=== PATIENT | female | born 1960 | race Caucasian/White ===

== ENCOUNTER 2019-10-14 17:52 | Emergency (ER) | payer BC, SELFPAY ==
[2019-10-14 17:58] VITALS: BP 159/93; PULSE 96; RESP 15; TEMP 36.3; O2SAT 97; BMI 33.6
--- NOTE | 2019-10-14 19:32 | ED.WOUNDLAC ---
HPI - Wound/Laceration <MARGARETH Ding - Last Filed: 10/14/19 22:28> General Chief Complaint: Wound/Laceration Stated Complaint: surgical wound bleeding Time Seen by Provider: 10/14/19 19:04 Source: patient Mode of arrival: Ambulatory Limitations: no limitations History of Present Illness HPI narrative: This is a 59-year-old female, nonsmoker, who presents to ED with status post slow Mohs surgery on L lower cheek for melanoma and basal cell cancer removal this afternoon at [address] Cavanaugh at [facility]. The site was cauterized before she left the office. When she arrived home around 5:00 p.m. patient and her spouse noticed pouring down blood from the surgical site. Patient had contacted on-call Contact Person and follow the instruction for direct pressure on surgical site for 15 minutes without good effect. Patient was advised to going to ED for bleeding controlled. Patient has an appointment tomorrow to follow up with another slow Mohs surgery. Patient denies currently on blood thinner. Patient has history of several melanomas and basal cell carcinoma in various areas and removal surgeries. Patient denies chest pain, breathing difficulty, dizziness at this time. Related Data Allergies Allergy/AdvReac Type Severity Reaction Status Date / Time alcohol Allergy Verified 10/14/19 17:58 [From Mastisol Adhesive] gum mastic Allergy Verified 10/14/19 17:58 [From Mastisol Adhesive] methyl salicylate Allergy Verified 10/14/19 17:58 [From Mastisol Adhesive] storax Allergy Verified 10/14/19 17:58 [From Mastisol Adhesive] Review of Systems <MARGARETH Ding - Last Filed: 10/14/19 22:28> Review of Systems Narrative: General: Denies fever, chills, fatigue, malaise, sweats. HEENT: Denies sinus pain, ear pain, sore throat, difficulty swallowing, dizziness. Respiratory: Denies dyspnea, cough, wheezing, hemoptysis, sputum. Cardiovascular: Denies chest pain, palpitations, orthopnea, edema. Gastrointestinal: Denies nausea, vomiting, abdominal pain, diarrhea, constipation, melena. : Denies dysuria, frequency, incontinence, hematuria, urinary retention. Musculoskeletal: Denies weakness, joint pain or bony pain. Skin: See HPI Neurologic: Denies weakness, headache, numbness, change in speech, confusion, seizures, incoordination. Psychiatric: No concerning psychosocial issues. 12-point review of systems is negative except for those stated above. Patient History <MARGARETH Ding - Last Filed: 10/14/19 22:28> Surgical History Status post Mohs surgery (Acute) Social History Smoking Status: Never smoker Smoking Status: Never smoker Substance Use Type: does not use Exam <MARGARETH Ding - Last Filed: 10/14/19 22:28> Narrative Exam Narrative: General appearance: well developed, well nourished, in no acute distress. Head: normocephalic, atraumatic, no scalp lesions, non-tender. ENT: Bilateral auditory canals and tympanic membranes clear. Hearing grossly intact. Nose without bleeding, purulent discharge, septal hematoma or deviation. Turbinate without erythema or swelling. Facial sinuses nontender to palpate. Mucous membrane moist, no mucosal lesion. Throat without erythema, tonsillar hypertrophy or exudate. Uvula in midline, airway patent. Neck/Thyroid: neck supple, full range of motion, no visible masses or meningeal signs. No JVD, non-tender without lymphadenopathy. Skin: L lower cheek has a small dressing saturated with blood and when this was removed from the most surgical site which is about 2.5 cm in diameter, w/o pulsating, profuse bleeding from the site. No suspicious rashes, lesions over other visible areas. Warm and dry and appropriate color for ethnicity. Heart: no clubbing, no cyanosis, no edema. S1 and S2 normal. RRR w/o murmurs, clicks, or bruits. Lungs: Breathing even and unlabored. No stridor. No accessory muscles used. Able to speak in full sentences. Chest: normal shape and expansion. Abdomen: non-obese, non-distended. Neurologic: alert and oriented. Cognitive exam, LOGISTICS VICE PRESIDENT and PNS grossly intact on informal exam. Psych: good eye contact, normal affect. Initial Vital Signs Initial Vital Signs: Vital Signs Temperature 97.3 F L 10/14/19 17:58 Pulse Rate 96 H 10/14/19 17:58 Respiratory Rate 15 10/14/19 17:58 Blood Pressure 159/93 H 10/14/19 17:58 Pulse Oximetry 97 10/14/19 17:58 <Jerad Smith DO - Last Filed: 10/14/19 22:57> Initial Vital Signs Initial Vital Signs: Vital Signs Temperature 97.3 F L 10/14/19 17:58 Pulse Rate 96 H 10/14/19 17:58 Respiratory Rate 15 10/14/19 17:58 Blood Pressure 159/93 H 10/14/19 17:58 Pulse Oximetry 97 10/14/19 17:58 Course <Cecil aGo MARGARETH - Last Filed: 10/14/19 22:28> Orders Ordered: Discontinued Medications Lidocaine/Epinephrine (Xylocaine 1% W/Epi) 1 ml SUBCUT NOW ONE Stop: 10/14/19 19:10 Tranexamic Acid (Cyklokapron) 1,000 mg MM NOW ONE Stop: 10/14/19 20:00 Last Admin: 10/14/19 21:32 Dose: 1,000 mg Documented by: CPRUITT Reevaluation(s) Reevaluation #1: very slow oozing from the site after surgicell applied with pressure dression applied for 20 minutes Time: 19:55 Reevaluation #2: Reinforced dressing with surgi foam and direct pressure for 5 minutes. Applied pressure dressing for 15 minutes. Monitored for additional 15min with slow oozing. Time: 20:30 Reevaluation #3: TXA soaked surgiform with direct pressure. Reinfored TXA soaked surgicell dressing for additional direct pressure for 10 min. Monitoring additional 15 min with pressure dressing. No active bleeding noted. Vital Signs Vital signs: Vital Signs - 8 hr 10/14/19 17:58 10/14/19 21:54 Temperature 97.3 F L Pulse Rate 96 H 81 Respiratory Rate 15 17 Blood Pressure 159/93 H Blood Pressure [Left Arm] 142/96 H Pulse Oximetry 97 97 <Jerad Smith DO - Last Filed: 10/14/19 22:57> Orders Ordered: Discontinued Medications Lidocaine/Epinephrine (Xylocaine 1% W/Epi) 1 ml SUBCUT NOW ONE Stop: 10/14/19 19:10 Tranexamic Acid (Cyklokapron) 1,000 mg MM NOW ONE Stop: 10/14/19 20:00 Last Admin: 10/14/19 21:32 Dose: 1,000 mg Documented by: CPRUITT Vital Signs Vital signs: Vital Signs - 8 hr 10/14/19 17:58 10/14/19 21:54 Temperature 97.3 F L Pulse Rate 96 H 81 Respiratory Rate 15 17 Blood Pressure 159/93 H Blood Pressure [Left Arm] 142/96 H Pulse Oximetry 97 97 MDM - Wound/Laceration <Cecil RadhaMARGARETH wood - Last Filed: 10/14/19 22:28> Differential Diagnosis Differential diagnosis: Likely other (post op bleeding) Medical Records Attestation: I reviewed the patient's medical records. MDM Narrative Medical decision making narrative: This is a 59-year-old female who presents to ED with post procedure bleeding on her left lower cheek to remove basal cell carcinoma and melanoma this afternoon at 2:[address] Donna Cavanaugh (oracle database developer) in [place]. Patient reports during procedure there was bleeding more than usual and it had to be cauterized. After patient return to home she and her spouse notice blood pouring down from the site. When the bandage was removed, there was profused bleeding from the site but no pulsation appreciated. Attempted several times to stop bleeding with Surgicel, surgery form and lidocaine with epinephrine 1% without success. On the 3rd trial, T x-ray was used to soak the surgeons form and Surgicel and applied on affected bleeding site and direct pressure was applied for 15 minutes and additional 10 minutes. Finally bleeding stopped after this interventions. Patient's vital signs been stable and has no symptoms such as chest pain, short of breath, dizziness. audiovisual aids technician oracle database developer Dr. Lamont Gardner call the ER find out the patient's status and provide guidance that it's okay to have temporary sutures with large 3.0 Vicryl to have epidermis closure and usually this helps with the bleeding. Since bleeding has stopped currently, deferring sutures. Patient advised to follow-up with oracle database developer tomorrow as scheduled in the morning preferably. Patient advised to call on-call oracle database developer if bleeding recurs. Return precautions were discussed with the patient. Dr. Gardner's contact info, cell phone [phone] and she is willing to evaluate the patient if bleeding recurs and the patient elects to come into office in [place]. Patient advised not to take shower, wash face, not overly use facial muscles to avoid rebleeding. Patient verbalized understanding and agrees with the treatment plan. Discharge Plan Departure Patient Disposition: Home Clinical Impression: Postoperative bleeding from incision Activity Restrictions/Additional Instructions: You have been diagnosed with [post surgical site bleeding after Mohs surgery on L lower cheek. Bleeding has been stopped after several attempts made with surgicel, surgifoam and finally TXA soaked the previous hemostasis dressing with prolonged direct pressure for 25 minutes without symptoms from bleeding. Lidocaine with epinephrine 1% was injected on affected side. What to do: *Take your medications as directed. No aspirin, Motrin, Naprosyn use. You take [id number] Tylenol as needed for discomfort. *Follow up with your oracle database developer tomorrow morning for additional surgical procedure and follow-up with the bleeding. Let them know you were seen in the ED and that we asked you to be seen in follow up. I spoke with Dr. Gardner over the phone before you are dc to home and informed the ER course and treatment. *Return to ED if you have any new, worsening, or concerning symptoms, such as [increasing and recurring bleeding, pain, chest pain, breathing difficulty, short of breath, dizziness or any acute concerns. Please contact on-call oracle database developer fist if bleeding recurs]. Referrals: Donna Cavanaugh [Other] <Jerad Smith, DO - Last Filed: 10/14/19 22:57> Sign Out Provider Sign Out Attestation: Dr Smith Co-Sign Statement: I was available for consultation during this patient's emergency department visit. This chart is signed by myself for administrative purposes only. I did not have direct contact with this patient during this visit. They were seen independently by the APC.
[2019-10-14] MEDS: TRANEXAMIC ACID 1,000 MG VIAL 1000 MG MM (21:32)
[2019-10-14 21:54] VITALS: BP 142/96; PULSE 81; RESP 17; O2SAT 97
[2019-10-14 23:13] VITALS: BP 144/82; PULSE 80; RESP 14; O2SAT 98
== END 2019-10-14 23:16 | disposition home or self-care (01) ==
PROVIDERS: Emergency Provider Nurse Practitioner Family
DX: L76.21 Postprocedural hemorrhage of skin and subcutaneous tissue following a dermatologic procedure (principal)
CPT/HCPCS: 99283

== ENCOUNTER 2025-04-16 03:23 | Emergency (ER) | payer BC, SELFPAY ==
[2025-04-16] VITALS (9 sets, daily range): BP systolic 137–183; BP diastolic 67–89; PULSE 95–105; RESP 17; TEMP 36.3; O2SAT 92–96; BMI 34.7
--- NOTE | 2025-04-16 03:45 | DI.RAD.S_ITS ---
PROCEDURE: XR CHEST 1V INDICATIONS: chest pain TECHNIQUE: One view of the chest was acquired. COMPARISON: None. FINDINGS: Surgical changes and devices: None. Lungs and pleura: Moderate left pleural effusion. Left basilar atelectasis. No definite focal infiltrate. No pneumothorax. Mediastinum: Mediastinal contours appear normal. Heart size is normal. Bones and chest wall: No suspicious bony lesions. Overlying soft tissues appear unremarkable. IMPRESSION: Moderate left pleural effusion with left lower lobe atelectasis. No definite focal infiltrate. No pneumothorax. No discrepancies from preliminary reading. Dictated by: Moi Drake M.D. on 04/16/2025 at 8:13 Approved by: Moi Drake M.D. on 04/16/2025 at 8:13
--- NOTE | 2025-04-16 04:33 | ED_ITS ---
HPI - General Adult General Chief complaint: Shortness of Breath/Dyspnea Stated complaint: SOB, HBP. Rapid Pulse Time Seen by Provider: 04/16/25 03:45 Source: patient Mode of arrival: Ambulatory History of Present Illness HPI narrative: 65-year-old female complains of palpitation symptoms intermittent for the last couple of days. She states that she had back pain prompting chest x-ray ordered by resident at [facility] internal medicine clinic, showed left-sided small pleural effusion, had thoracentesis of fluid, awaiting follow up for results. She then had palpitation symptoms yesterday that prompted her to go to [facility] emergency department for evaluation, recalls chest x-rays and labs and CT angiogram chest studies that were negative, and was sent home. No new medications at discharge. Still having intermittent palpitation symptoms. Tonight home blood pressure cuff readings were elevated. She was anxious about the palpitations and the blood pressure readings. Here for further evaluation. Feels better without specific treatment. Related Data Home Medications ?Medication ?Instructions ?Recorded ?Confirmed aspirin 81 mg tablet,delayed 81 mg PO DAILY 10/04/21 0 04/16/25 release (Adult Aspirin Regimen) losartan 50 mg tablet 50 mg PO DAILY 10/04/2104/06 hydroxyurea 500 mg capsule (Hydrea) 500 mg PO DAILY 04/16/25 Previous Rx's ?Medication ?Instructions ?Recorded metoprolol tartrate 25 mg tablet 12.5 mg (1/2 x 25 mg) PO BID #30 04/16/25 tabs Allergies Allergy/AdvReac Type Severity Reaction Status Date / Time alcohol (From Mastisol Allergy Verified 04/16/25 03:30 Adhesive) gum mastic (From Mastisol Allergy Verified 04/16/25 03:30 Adhesive) methyl salicylate (From Allergy Verified 04/16/25 03:30 Mastisol Adhesive) storax (From Mastisol Allergy Verified 04/16/25 03:30 Adhesive) Patient History Surgical History Status post Mohs surgery Social History Smoking Status: Never smoker Smoking Status: Never smoker Exam Narrative Exam Narrative: GENERAL: Well-developed patient, in mild distress. HEAD: Atraumatic. Normocephalic. EYES: Pupils equal round and reactive. Extraocular motions intact. No scleral icterus. No injection or drainage. ENT: Nose without bleeding, purulent drainage. Throat without erythema, tonsillar hypertrophy or exudate. Airway patent. NECK: Trachea midline. Non tender CARDIOVASCULAR: Regular rate and rhythm without murmurs, gallops, or rubs. RESPIRATORY: Clear to auscultation. Breath sounds diminished left base. No wheezes, rales, or rhonchi. No retractions, speaks in full sentences. GASTROINTESTINAL: Abdomen soft, non-tender, nondistended. EXTREMITIES: No edema or joint tenderness. BACK: Nontender without deformity or crepitance. No flank tenderness. NEURO: AOx3. Motor functions grossly nonfocal. SKIN: No rash or erythema of visible areas Initial Vital Signs Initial Vital Signs: Vital Signs Temperature 97.4 F L 04/16/25 03:31 Pulse Rate 103 H 04/16/25 03:31 Respiratory Rate 17 04/16/25 03:31 Blood Pressure 183/89 H 04/16/25 03:31 Pulse Oximetry 96 04/16/25 03:31 Oxygen Delivery Method Room Air 04/16/25 03:31 Course Orders Ordered: Discontinued Medications Aspirin (Aspirin 81 Mg Chew Tab) 324 mg PO NOW ONE Stop: 04/16/25 03:46 Last Admin: 04/16/25 04:46 Dose: Not Given Documented By: Metoprolol Tartrate (Metoprolol Ir 25 Mg Tablet) 12.5 mg PO NOW ONE Stop: 04/16/25 05:59 Last Admin: 04/16/25 06:07 Dose: 12.5 mg Documented By: HNG Vital Signs Vital signs: Vital Signs - 8 hr 04/16/25 03:31 04/16/25 03:44 04/16/25 03:45 Temperature 97.4 F L Pulse Rate 103 H 105 H Respiratory Rate 17 Blood Pressure 183/89 H 167/75 H Pulse Oximetry 96 92 Oxygen Delivery Method Room Air 04/16/25 03:45 04/16/25 04:00 04/16/25 04:00 Temperature Pulse Rate 101 H 98 H Respiratory Rate Blood Pressure 161/75 H Pulse Oximetry 96 95 Oxygen Delivery Method 04/16/25 04:30 04/16/25 04:30 Temperature Pulse Rate 102 H Respiratory Rate Blood Pressure 137/67 Pulse Oximetry 93 Oxygen Delivery Method Room Air Medical Decision Making Lab Data Lab results reviewed: Yes I reviewed the patient's lab results. 04/16/25 04:30 04/16/25 04:30 Labs: Lab Results 04/16/25 Range/Units 04:30 WBC 12.8 H (4.5-11.0) X10^3/uL RBC 5.53 H (4.0-5.2) X10^6/uL Hgb 12.2 (12.0-16.0) g/dL Hct 38.3 (36-46) % MCV 69.3 L (80-100) fL MCH 22.2 L (26-34) PG MCHC 32.0 (30-36) % RDW 20.0 H (11.6-14.8) % Plt Count 179 (150-400) X10^3/uL Neut % (Auto) 87.6 H (50-75) % Lymph % (Auto) 5.8 L (25-40) % White % (Auto) 4.2 (3-14) % Eos % (Auto) 1.8 L (2-4) % Baso % (Auto) 0.6 (0-2) % Neut # (Auto) 09012 H (5967-1318) /uL Lymph # (Auto) 700 L (3337-7577) /uL White # (Auto) 500 (0-900) /uL Eos # (Auto) 200 (0-450) /uL Baso # (Auto) 100 (0-100) /uL RBC Morphology See below Anisocytosis 2+ H Microcytosis 2+ H Tear Drop Cells 1+ H Sodium 137 (137-145) mmol/L Potassium 3.9 (3.4-5.1) mmol/L Chloride 102 (98-107) mmol/L Carbon Dioxide 26 (22-32) mmol/L BUN 10 (7-17) mg/dL Creatinine 0.65 (0.52-1.04) mg/dL Estimated GFR > 60 (>60) mL/min BUN/Creatinine Ratio 15.4 (6-22) Glucose 105 H (70-99) mg/dL Calcium 9.3 (8.4-10.2) mg/dL Total Bilirubin 0.6 (0.2-1.3) mg/dL AST 28 (14-36) IU/L ALT 16 (<35) IU/L Alkaline Phosphatase 98 (38-126) U/L Total Creatine Kinase 25 L (30-135) U/L Troponin I < 0.012 (0.01-0.034) ng/mL Total Protein 7.3 (6.3-8.2) g/dL Albumin 4.6 (3.5-5.0) g/dL Globulin 2.7 (1.7-4.1) g/dL Albumin/Globulin Ratio 1.7 (1.0-2.8) Lipase 60 (23-300) U/L MDM Narrative Medical decision making narrative: 65-year-old female with recent diagnosis left pleural effusion status post diagnostic thoracentesis, awaiting follow up clinic appointment, with palpitation symptoms, evaluation yesterday ED [facility] included CT angiogram chest that did not show pulmonary embolus, was sent home, no ZIO patch or ambulatory monitoring, still having intermittent palpitation symptoms. EKG sinus. No ectopy on monitor. Chest x-ray. Impressions: ?Moderate to large left pleural effusion. No prior for comparison.? See radiology report. WBC 12k, normal HB, Lytes, Troponin. Oral metoprolol 12.5mg given, sent Rx for twice daily dosing. FU with [facility] internal medicine residency clinic providers as planned, FU with [facility] IR for CT-guided thoracentesis as scheduled. DC home. Return precautions discussed. Discharge Plan Departure Patient Disposition: Home Clinical Impression: Heart palpitations, Pleural effusion on left Activity Restrictions/Additional Instructions: Intermittent palpitations of unclear cause. Recent outpatient clinic evaluation found to have left pleural effusion, diagnostic thoracentesis described, awaiting follow up clinic appointment for results of fluids sample analysis. Yesterday with palpitation symptoms and elevated D-dimer, ED evaluation as [facility] included chest x-ray and CT angiogram of the lungs, no acute changes, sent home, no new medications. Still having palpitation symptoms. Elevated blood pressure at home also noted. Blood pressure here however was not elevated, without specific treatment. No abnormal heart rhythms on monitor of significance. Consider ZIO patch or other ambulatory cardiac monitoring as an outpatient, discuss with your regular doctor in close follow up. For now continue your chronic medications as prescribed. Follow up with your regular provider tomorrow by phone to arrange further follow up testing as an outpatient. Return to this/nearest emergency department for any change worsening symptoms or any concerns prior. Follow up for your CT-guided left pleural effusion drainage procedure at [facility] as planned. CT angiogram chest done yesterday at [facility] did not show blood clots to the lungs, we will not repeat the study for now. Take low dose metoprolol 12.5 mg twice daily, new prescription sent to your pharmacy, might help with palpitation symptoms and with your high blood pressure. Continue your losartan medication. Prescriptions: New metoprolol tartrate 25 mg tablet 12.5 mg PO BID Qty: 30 0RF No Action losartan 50 mg tablet 50 mg PO DAILY aspirin [Adult Aspirin Regimen] 81 mg tablet,delayed release (DR/EC) 81 mg PO DAILY hydroxyurea [Hydrea] 500 mg capsule 500 mg PO DAILY Patient Comments: Takes daily 6 days of the week. Referrals: Miscellaneous,Doctor, [Primary Care Provider, Medical] Stand Alone Forms: Patient Portal/API
[2025-04-16 04:39] LABS: Add Manual Diff / Slide Review NO; Basophils Absolute Auto 100 /uL (0-100); Basophils Percent Auto 0.6 % (0-2); Eosinophils Absolute Auto 200 /uL (0-450); Eosinophils Percent Auto 1.8 % (2-4); Hematocrit 38.3 % (36-46); Hemoglobin 12.2 g/dL (12.0-16.0); Lymphocytes Absolute Auto 700 /uL (1100-4500); Lymphocytes Percent Auto 5.8 % (25-40); Mean Corpuscular Hemoglobin 22.2 PG (26-34); Mean Corpuscular Volume 69.3 fL (80-100); Monocytes Absolute Auto 500 /uL (0-900); Monocytes Percent Auto 4.2 % (3-14); Neutrophils Absolute Auto 11200 /uL (1500-7000); Neutrophils Percent Auto 87.6 % (50-75); Platelet Count 179 X10^3/uL (150-400); Red Blood Cell Count 5.53 X10^6/uL (4.0-5.2); White Blood Cell Count 12.8 X10^3/uL (4.5-11.0)
--- NOTE | 2025-04-16 04:44 | PC.NURSE ---
Pt recently had a left pleural effusion, with a thoracentesis.
[2025-04-16 04:50] LABS: Alanine Aminotransferase 16 IU/L (<35); Albumin 4.6 g/dL (3.5-5.0); Albumin Globulin Ratio 1.7 (1.0-2.8); Alkaline Phosphatase 98 U/L (38-126); Aspartate Aminotransferase 28 IU/L (14-36); BUN Creatinine Ratio 15.4 (6-22); Bilirubin Total 0.6 mg/dL (0.2-1.3); Blood Urea Nitrogen 10 mg/dL (7-17); Calcium 9.3 mg/dL (8.4-10.2); Carbon Dioxide 26 mmol/L (22-32); Chloride 102 mmol/L (98-107); Creatine Kinase 25 U/L (30-135); Estimated Glomerular Filt Rate > 60 mL/min (>60); Globulin 2.7 g/dL (1.7-4.1); Glucose 105 mg/dL (70-99); HEMOLYSIS < 15 (0-50); Lipase 60 U/L (23-300); Potassium 3.9 mmol/L (3.4-5.1); Sodium 137 mmol/L (137-145); Total Protein 7.3 g/dL (6.3-8.2)
[2025-04-16 05:00] LABS: Anisocytosis 2+; Microcytosis 2+; Tear Drop Cells 1+
[2025-04-16 05:02] LABS: Troponin I < 0.012 ng/mL (0.01-0.034)
[2025-04-16] MEDS: METOPROLOL IR 25 MG TABLET 12.5 MG PO (06:07)
== END 2025-04-16 06:21 | disposition home or self-care (01) ==
PROVIDERS: Emergency Provider Emergency Medicine
DX: R00.2 Palpitations (principal); J90 Pleural effusion, not elsewhere classified
CPT/HCPCS: 36415; 71045; 80053; 82550; 83690; 84484; 85025; 99283; 99284

== ENCOUNTER → 2025-07-21 14:33 | Outpatient (CLI) | payer MEDICARE, SELFPAY ==
--- NOTE | 2025-07-21 14:35 | DI.CT.S_ITS ---
PROCEDURE: CT CHEST WO CON INDICATIONS: Pleural effusion, eval for change TECHNIQUE: Noncontrast 5 mm thick sections acquired from the pulmonary apices to the posterior costophrenic angles. 1 mm lung window, 5 mm thick coronal and sagittal and 7 mm axial MIP reformats were then acquired. For radiation dose reduction, the following was used: automated exposure control, adjustment of mA and/or kV according to patient size. COMPARISON: [facility], CT, CT ANGIO CHEST PE, 04/15/2025, 11:29. FINDINGS: Image quality: Diagnostic Lungs and pleura: No airspace consolidation. Scattered scarring and atelectasis. No right pleural effusion. Prior left pleural effusion has significantly decreased. There is only trace remaining fluid. Small pulmonary nodules for example 3 mm left lower lung low suspicion pulmonary nodule (3/156.). Attention on follow-up given patient's underlying hematologic condition per prior report. Mediastinum, heart, and esophagus: Normal heart size. Mildly patulous esophagus. No lymphadenopathy by size criteria. Chest wall and thyroid: Unremarkable Upper abdomen: Scattered suspected hepatic cysts. Subcentimeter lesions are too small to characterize, probably also cysts. Large splenomegaly. Bones: No aggressive appearing osseous abnormality. Degenerative changes are present. IMPRESSION: Significantly decreased left pleural effusion, with only trace pleural fluid remaining. Large splenomegaly, partially seen. Other findings above. Dictated by: Sheldon Cross M.D. on 07/21/2025 at 17:26 Approved by: Sheldon Cross M.D. on 07/21/2025 at 17:31
== END ==
PROVIDERS: Referring Provider Internal Medicine Critical Care Medicine; Visit Provider Internal Medicine Critical Care Medicine
DX: J90 Pleural effusion, not elsewhere classified (principal); R16.1 Splenomegaly, not elsewhere classified; R91.8 Other nonspecific abnormal finding of lung field
CPT/HCPCS: 71250

== ENCOUNTER 2025-09-11 08:58 | Emergency (ER) | payer MEDICARE, SELFPAY ==
[2025-09-11] VITALS (10 sets, daily range): BP systolic 134–191; BP diastolic 63–91; PULSE 74–91; RESP 13–23; TEMP 36.4; O2SAT 95–99; BMI 31.8
--- NOTE | 2025-09-11 09:12 | DI.RAD.S_ITS ---
PROCEDURE: XR CHEST 1V
--- NOTE | 2025-09-11 09:12 | DI.CT.S_ITS ---
PROCEDURE: CT HEAD/BRAIN WO CON
--- NOTE | 2025-09-11 09:13 | ED_ITS ---
HPI - Arrhythmia/Palpitations
--- NOTE | 2025-09-11 09:13 | ED.ARRPALP ---
HPI - Arrhythmia/Palpitations General Chief Complaint: Arrhythmia/Palpitations Stated Complaint: High heart rate , high blood pressure Time Seen by Provider: 09/11/25 09:12 History of Present Illness HPI narrative: 65-year-old female history of polycythemia vera on jackafy rx, hypertension, splenic artery aneurysm 1.8cm seen already at [facility] conservative watchful waiting at this time, presents with right-sided facial discomfort, headache, and elevated blood pressure despite taking 50 of losartan to arrival. Patient recently was seen by dentist with jaw pain with a right-sided facial discomfort is and found to have no acute pathology. Patient denies dizziness, blurred vision, weakness of the arms, legs, difficulty speaking, swallowing, chest pain, abdominal pain, nausea, vomiting, diarrhea, urinary complaints, cough, runny nose, sore throat. Other than what is stated 14 point review of system is negative. Related Data Home Medications ?Medication ?Instructions ?Recorded ?Confirmed aspirin 81 mg tablet,delayed 81 mg PO DAILY 10/04/21 09/09/25 release (Adult Aspirin Regimen) losartan 50 mg tablet 50 mg PO DAILY 10/04/21 09/09/25 ruxolitinib 10 mg tablet (Jakafi) 10 mg PO BID 09/09/25 09/09/25 Allergies Allergy/AdvReac Type Severity Reaction Status Date / Time alcohol (From Mastisol Allergy Verified 09/09/25 11:28 Adhesive) gum mastic (From Mastisol Allergy Verified 09/09/25 11:28 Adhesive) methyl salicylate (From Allergy Verified 09/09/25 11:28 Mastisol Adhesive) storax (From Mastisol Allergy Verified 09/09/25 11:28 Adhesive) Review of Systems Review of Systems ROS Unobtainable: All systems reviewed & are unremarkable except as noted in HPI and below Patient History Surgical History Status post Mohs surgery Exam Narrative Exam Narrative: GENERAL: 65 year old patient appears stated age. Well-developed patient, in mild distress. HEAD: Atraumatic. Normocephalic. EYES: Pupils equal round and reactive. Extraocular motions intact. No scleral icterus. No injection or drainage. ENT: Nose without bleeding, purulent drainage. Throat without erythema, tonsillar hypertrophy or exudate. Airway patent. NECK: Trachea midline. Non tender CARDIOVASCULAR: Regular rate and rhythm without murmurs, gallops, or rubs. RESPIRATORY: Clear to auscultation. Breath sounds equal bilaterally. No wheezes, rales, or rhonchi. GASTROINTESTINAL: Abdomen soft, non-tender, nondistended. EXTREMITIES: No edema or joint tenderness. BACK: Nontender without deformity or crepitance. No flank tenderness. NEURO: AOx3. SKIN: No rash or erythema of visible areas Initial Vital Signs Initial Vital Signs: Vital Signs Pulse Rate 90 09/11/25 09:04 Respiratory Rate 23 09/11/25 09:04 Pulse Oximetry 97 09/11/25 09:04 Course Orders Ordered: ED Orders 09/11/25 09:12 CT head/brain wo con Stat XR chest 1V Stat EKG-12 Lead Stat 09/11/25 09:37 Complete Blood Count AUTO DIFF Stat Comprehensive Metabolic Panel Stat Lipase Stat Magnesium Stat NT-proBNP (BNP-Adult 18+) Stat Troponin I Stat 09/11/25 11:27 Troponin I Stat Discontinued Medications Lactated Ringer's (Lactated Ringers) 1,000 mls @ 1,000 mls/hr IV BOLUS ONE Stop: 09/11/25 11:52 Last Admin: 09/11/25 10:57 Dose: 1,000 mls/hr Documented By: EB Vital Signs Vital signs: Vital Signs - 8 hr 09/11/25 09:04 09/11/25 09:05 09/11/25 09:05 Temperature Pulse Rate 90 91 H Respiratory Rate 23 Blood Pressure 191/91 H Pulse Oximetry 97 98 Oxygen Delivery Method 09/11/25 09:06 09/11/25 09:30 09/11/25 09:32 Temperature 97.5 F L Pulse Rate 91 H 80 78 Respiratory Rate 16 18 Blood Pressure 191/91 H Pulse Oximetry 97 98 98 Oxygen Delivery Method Room Air 09/11/25 09:32 09/11/25 10:00 09/11/25 10:00 Temperature Pulse Rate 74 Respiratory Rate 13 Blood Pressure 156/80 H 148/75 H Pulse Oximetry 99 Oxygen Delivery Method 09/11/25 10:30 09/11/25 10:30 09/11/25 11:03 Temperature Pulse Rate 78 85 Respiratory Rate Blood Pressure 134/63 Pulse Oximetry 98 95 Oxygen Delivery Method 09/11/25 11:30 Temperature Pulse Rate 79 Respiratory Rate Blood Pressure Pulse Oximetry 98 Oxygen Delivery Method MDM - Arrhythmia/Palpitations Lab Data 09/11/25 09:37 09/11/25 09:37 Labs: Lab Results 09/11/25 09/11/25 Range/Units 09:37 11:27 WBC 6.0 (4.5-11.0) X10^3/uL RBC 5.23 H (4.0-5.2) X10^6/uL Hgb 12.3 (12.0-16.0) g/dL Hct 38.3 (36-46) % MCV 73.3 L (80-100) fL MCH 23.5 L (26-34) PG MCHC 32.1 (30-36) % RDW 20.1 H (11.6-14.8) % Plt Count 293 (150-400) X10^3/uL Neut % (Auto) 79.0 H (50-75) % Lymph % (Auto) 14.0 L (25-40) % [place] % (Auto) 5.3 (3-14) % Eos % (Auto) 1.2 L (2-4) % Baso % (Auto) 0.5 (0-2) % Neut # (Auto) 4800 (4496-3874) /uL Lymph # (Auto) 800 L (4332-5570) /uL [place] # (Auto) 300 (0-900) /uL Eos # (Auto) 100 (0-450) /uL Baso # (Auto) 0 (0-100) /uL Sodium 131 L (137-145) mmol/L Potassium 4.0 (3.4-5.1) mmol/L Chloride 99 (98-107) mmol/L Carbon Dioxide 24 (22-32) mmol/L BUN 11 (7-17) mg/dL Creatinine 0.65 (0.52-1.04) mg/dL Estimated GFR > 60 (>60) mL/min BUN/Creatinine Ratio 16.9 (6-22) Glucose 96 (70-99) mg/dL Calcium 8.6 (8.4-10.2) mg/dL Magnesium 1.8 (1.6-2.3) mg/dL Total Bilirubin 0.7 (0.2-1.3) mg/dL AST 44 H (14-36) IU/L ALT 14 (<35) IU/L Alkaline Phosphatase 57 (38-126) U/L Troponin I < 0.012 < 0.012 (0.01-0.034) ng/mL NT-Pro-B Natriuret Pep < 20 (<125) pg/mL Total Protein 7.1 (6.3-8.2) g/dL Albumin 4.6 (3.5-5.0) g/dL Globulin 2.5 (1.7-4.1) g/dL Albumin/Globulin Ratio 1.8 (1.0-2.8) Lipase 115 (23-300) U/L Urine Dip Bedside Urine Glucose Negative Bedside Urine Bilirubin - Negative Bedside Urine Ketone - Negative Urine Specific [place] 1.005 Bedside Urine Occult Blood - Negative Bedside Urine pH 6.0 Bedside Urine Protein - Negative Bedside Urine Urobilinogen - Negative Bedside Urine Nitrite - Negative Bedside Urine Leukocytes - Negative Esterase Imaging Data Chest x-ray: Radiologist's Impresson: [address] [address] XRay Report Signed Patient: Anitha Goode MR#: [id number] : 1960 Acct:[id number] Age/Sex: 65 / F Date of Service: 09/11/25 Loc: ED Accession Number: [id number] Procedure: XR chest 1V Ordering Provider: Chet Mercado D.O. PROCEDURE: XR CHEST 1V INDICATIONS: elevated blood pressure/ headache/ R sided facial discomfort TECHNIQUE: One view of the chest was acquired. COMPARISON: [facility], CT, CT CHEST WO CON, 07/21/2025, 14:58. [facility], CR, XR CHEST 1V, 04/16/2025, 3:40. FINDINGS: Surgical changes and devices: None. Lungs and pleura: Lungs are unchanged with mild bibasilar linear atelectasis and/or scarring. Persistent reduced inspiratory volume to a mild degree. No pleural effusions or pneumothorax. Mediastinum: Mediastinal contours appear normal. Heart size is normal. Bones and chest wall: No suspicious bony lesions. Overlying soft tissues appear unremarkable. IMPRESSION: No acute cardiopulmonary abnormality is seen. Mild reduced inspiratory volume persists. CT scan - head: Radiologist's Impresson: [address] [address] [address] Scan Report Signed Patient: Anitha Goode MR#: [id number] : 1960 Acct:[id number] Age/Sex: 65 / F Date of Service: 09/11/25 Loc: ED Accession Number: [id number] Procedure: CT head/brain wo con Ordering Provider: Chet Mercado D.O. PROCEDURE: CT HEAD/BRAIN WO CON INDICATIONS: elevated blood pressure/ headache/ R sided facial discomfort TECHNIQUE: Noncontrast 4.5 mm thick angled axial sections acquired from the foramen magnum to the vertex, with coronal and sagittal reformats. For radiation dose reduction, the following was used: automated exposure control, adjustment of mA and/or kV according to patient size. COMPARISON: None. FINDINGS: Image quality: Diagnostic. CSF spaces: Basal cisterns are patent. No extra-axial fluid collections. The ventricles are symmetric in size and shape. Brain: No intracranial bleeds or mass effect. There is cerebral volume loss, with resultant ventricular and sulcal prominence. There are periventricular and deep white matter chronic small vessel ischemic changes. There is intracranial internal carotid artery atherosclerosis. Skull and face: Calvarium and visualized facial bones appear intact, without suspicious lesions. Sinuses: Visualized sinuses and mastoids are clear. IMPRESSION: No acute intracranial pathology. ECG Data Interpretation: NSR HR 74 NV 154 QRS [address]-t wave change No previous EKG to compare MDM Narrative Medical decision making narrative: All lab work, vital signs, nurse triage note, medication list, previous ER visits, and all imaging studies reviewed. WBC 6.0 hemoglobin 12.3 platelets 293 sodium 131 potassium 4.0 chloride 99 CO2 24 BUN 11 creatinine 0.65 glucose 96 calcium 1.8 troponin less than 0.012 on 1st set BNP <20 lipase 150 chest x-ray showed no acute cardiopulmonary abnormality seen. Second set troponin was normal. Patient given lactated ringer here. Differential diagnosis aneurysm, hemorrhage, STEMI, NSTEMI, unstable angina, hypertensive emergency, or urgency Discharge Plan Departure Patient Disposition: Home Clinical Impression: Hypertensive urgency Headache Qualifiers: Headache type: unspecified Headache chronicity pattern: acute headache Instructions: DI for Malignant Hypertension Activity Restrictions/Additional Instructions: Return with new or worsening symptoms. Follow up with PCP tomorrow or Monday for blood pressure recheck. Prescriptions: No Action losartan 50 mg tablet 50 mg PO DAILY aspirin [Adult Aspirin Regimen] 81 mg tablet,delayed release (DR/EC) 81 mg PO DAILY Jakafi 10 mg tablet 10 mg PO BID Referrals: Javan Solomon MD [Primary Care Provider, Internal Medicine] Stand Alone Forms: Patient Portal/API
[2025-09-11 09:43] LABS: Add Manual Diff / Slide Review NO; Hematocrit 38.3 % (36-46); Hemoglobin 12.3 g/dL (12.0-16.0); Lymphocytes Absolute Auto 800 /uL (1100-4500); Mean Corpuscular HGB Conc 32.1 % (30-36); Mean Corpuscular Hemoglobin 23.5 PG (26-34); Mean Corpuscular Volume 73.3 fL (80-100); Platelet Count 293 X10^3/uL (150-400)
--- NOTE | 2025-09-11 09:50 | EKG_ITS ---
[facility]
[2025-09-11 09:57] LABS: Alanine Aminotransferase 14 IU/L (<35); Albumin 4.6 g/dL (3.5-5.0); Albumin Globulin Ratio 1.8 (1.0-2.8); Alkaline Phosphatase 57 U/L (38-126); Blood Urea Nitrogen 11 mg/dL (7-17); Calcium 8.6 mg/dL (8.4-10.2); Carbon Dioxide 24 mmol/L (22-32); Chloride 99 mmol/L (98-107); Estimated Glomerular Filt Rate > 60 mL/min (>60); Globulin 2.5 g/dL (1.7-4.1); Glucose 96 mg/dL (70-99); HEMOLYSIS 22 (0-50); Lipase 115 U/L (23-300); Magnesium 1.8 mg/dL (1.6-2.3); Potassium 4.0 mmol/L (3.4-5.1); Sodium 131 mmol/L (137-145); Total Protein 7.1 g/dL (6.3-8.2)
[2025-09-11 10:09] LABS: NT-proBNP (BNP-Adult 18+) < 20 pg/mL (<125); Troponin I < 0.012 ng/mL (0.01-0.034)
[2025-09-11] MEDS: LACTATED RINGERS 1,000 ML 1000 ML IV (10:57)
[2025-09-11 12:01] LABS: Troponin I < 0.012 ng/mL (0.01-0.034)
== END 2025-09-11 12:30 | disposition home or self-care (01) ==
PROVIDERS: Emergency Provider Family Medicine; PCP Student in an Organized Health Care Education/Training Program
DX: R51.9 Headache, unspecified (principal); I16.0 Hypertensive urgency
CPT/HCPCS: 36415; 70450; 71045; 80053; 81003; 83690; 83735; 83880; 84484; 85025; 93005; 96360; 96361; 99284; J7120

== ENCOUNTER → 2025-10-11 07:11 | Outpatient (CLI) | payer MEDICARE, SELFPAY | PROVIDERS: PCP Student in an Organized Health Care Education/Training Program; Visit Provider Registered Nurse | DX: R30.0 Dysuria (principal) | CPT/HCPCS: 87086 ==

== ENCOUNTER 2025-10-12 15:10 | Emergency (ER) | payer MEDICARE, SELFPAY ==
[2025-10-12] VITALS (10 sets, daily range): BP systolic 162–197; BP diastolic 81–103; PULSE 88–104; RESP 13–24; TEMP 36.4; O2SAT 95–98; BMI 32.3
--- NOTE | 2025-10-12 15:24 | DI.RAD.S_ITS ---
PROCEDURE: XR CHEST 1V INDICATIONS: Chest pain TECHNIQUE: One view of the chest was acquired. COMPARISON: [facility], CR, XR CHEST 1V, 09/11/2025, 9:24. FINDINGS: Surgical changes and devices: None. Lungs and pleura: Low lung volumes without focal consolidation. No pleural effusions or pneumothorax. Mediastinum: Mediastinal contours appear normal. Heart size is normal. Bones and chest wall: No suspicious bony lesions. Overlying soft tissues appear unremarkable. IMPRESSION: Low lung volumes without focal consolidation. Dictated by: Juan Daniel Park M.D. on 10/12/2025 at 15:00 Approved by: Juan Daniel Park M.D. on 10/12/2025 at 15:00
--- NOTE | 2025-10-12 15:26 | ED.ABDPAIN ---
HPI - Abdominal Pain General Chief Complaint: Arrhythmia/Palpitations Stated Complaint: racing heart, increased blood pressure Time Seen by Provider: 10/12/25 15:14 History of Present Illness HPI narrative: This is a 65-year-old female with history of P vera also a left pleural effusion which required thoracentesis who states that for the past couple of days she has had intermittent episodes of palpitations also left upper quadrant pain and nausea no vomiting or diarrhea no fevers or chills no hemoptysis. Patient describes her abdominal pain is left upper quadrant describes simply has pain not provoked intermittent self-limited. Related Data Home Medications ?Medication ?Instructions ?Recorded ?Confirmed aspirin 81 mg tablet,delayed 81 mg PO DAILY 10/04/21 10/11/25 release (Adult Aspirin Regimen) losartan 50 mg tablet 50 mg PO DAILY 10/04/21 10/11/25 ruxolitinib 10 mg tablet (Jakafi) 10 mg PO BID 09/09/25 10/11/25 Previous Rx's ?Medication ?Instructions ?Recorded nitrofurantoin 100 mg PO Q12H 5 days #10 caps 10/11/25 monohydrate/macrocrystals 100 mg capsule (Macrobid) Allergies Allergy/AdvReac Type Severity Reaction Status Date / Time alcohol (From Mastisol Allergy Verified 10/12/25 15:24 Adhesive) gum mastic (From Mastisol Allergy Verified 10/12/25 15:24 Adhesive) methyl salicylate (From Allergy Verified 10/12/25 15:24 Mastisol Adhesive) storax (From Mastisol Allergy Verified 10/12/25 15:24 Adhesive) Review of Systems Review of Systems Narrative: GENERAL: Denies chills, fatigue, malaise, fever, sweats. HEENT: Denies sinus pain, ear pain, sore throat, difficulty swallowing, dizziness. RESPIRATORY: Denies dyspnea, cough, wheezing, hemoptysis, sputum. CARDIOVASCULAR: See HPI GASTROINTESTINAL: See HPI : Denies dysuria, frequency, incontinence, hematuria, urinary retention. MUSCULOSKELETAL: denies weakness, joint pain, or bony pain SKIN: Denies rash, skin lesions, or other NEUROLOGIC: Denies weakness, headache, numbness, change in speech, confusion, seizures, incoordination. PSYCHIATRIC: No concerning psychosocial issues. 12 point review of systems is negative except for those stated above Patient History Surgical History Status post Mohs surgery Exam Narrative Exam Narrative: GENERAL: [] year old patient appears stated age. Well-developed patient, in mild distress. HEAD: Atraumatic. Normocephalic. EYES: Pupils equal round and reactive. Extraocular motions intact. No scleral icterus. No injection or drainage. ENT: Nose without bleeding, purulent drainage. Throat without erythema, tonsillar hypertrophy or exudate. Airway patent. NECK: Trachea midline. Non tender CARDIOVASCULAR: Regular rate and rhythm without murmurs, gallops, or rubs. RESPIRATORY: Clear to auscultation. Breath sounds equal bilaterally. No wheezes, rales, or rhonchi. GASTROINTESTINAL: Abdomen soft, left upper quadrant tenderness no guarding or rebound, nondistended. EXTREMITIES: No edema or joint tenderness. BACK: Nontender without deformity or crepitance. No flank tenderness. NEURO: AOx3. SKIN: No rash or erythema of visible areas Initial Vital Signs Initial Vital Signs: Vital Signs Temperature 97.5 F L 10/12/25 15:24 Pulse Rate 104 H 10/12/25 15:24 Respiratory Rate 18 10/12/25 15:24 Blood Pressure 182/92 H 10/12/25 15:24 Pulse Oximetry 97 10/12/25 15:24 Oxygen Delivery Method Room Air 10/12/25 15:24 Course Orders Ordered: ED Orders 10/12/25 15:24 XR chest 1V Stat EKG-12 Lead Stat 10/12/25 15:30 Complete Blood Count AUTO DIFF Stat Comprehensive Metabolic Panel Stat D Dimer Stat Lipase Stat Magnesium Stat NT-proBNP (BNP-Adult 18+) Stat PTT Partial Thromboplastin Adam Stat Prothrombin Time INR Stat Troponin I Stat 10/12/25 16:19 CT chest wo con Stat 10/12/25 16:26 Urinalysis and Microscopic Stat Urine Culture Stat 10/12/25 16:34 Urine Culture Stat Urine Microscopic Stat Discontinued Medications Sodium Chloride (Normal Saline 0.9%) 1,000 mls @ 999 mls/hr IV BOLUS ONE Stop: 10/12/25 16:24 Last Admin: 10/12/25 15:44 Dose: 999 mls/hr Documented By: REHAN Vital Signs Vital signs: Vital Signs - 8 hr 10/12/25 15:24 Temperature 97.5 F L Pulse Rate 104 H Respiratory Rate 18 Blood Pressure 182/92 H Pulse Oximetry 97 Oxygen Delivery Method Room Air MDM - Abdominal Pain Lab Data 10/12/25 15:30 10/12/25 15:30 Labs: Lab Results 10/12/25 10/12/25 Range/Units 15:30 16:26 WBC 8.0 (4.5-11.0) X10^3/uL RBC 5.52 H (4.0-5.2) X10^6/uL Hgb 13.3 (12.0-16.0) g/dL Hct 40.2 (36-46) % MCV 72.9 L (80-100) fL MCH 24.1 L (26-34) PG MCHC 33.0 (30-36) % RDW 21.2 H (11.6-14.8) % Plt Count 349 (150-400) X10^3/uL Neut % (Auto) 80.8 H (50-75) % Lymph % (Auto) 11.7 L (25-40) % [place] % (Auto) 5.5 (3-14) % Eos % (Auto) 1.1 L (2-4) % Baso % (Auto) 0.9 (0-2) % Neut # (Auto) 6500 (9022-1848) /uL Lymph # (Auto) 900 L (7045-1235) /uL [place] # (Auto) 400 (0-900) /uL Eos # (Auto) 100 (0-450) /uL Baso # (Auto) 100 (0-100) /uL PT 11.5 (9.4-12.5) SECONDS INR 1.0 (0.9-1.3) APTT 31 (25.1-36.5) SECONDS D-Dimer < 215 (<500) ng/ml Sodium 141 (137-145) mmol/L Potassium 4.1 (3.4-5.1) mmol/L Chloride 105 (98-107) mmol/L Carbon Dioxide 27 (22-32) mmol/L BUN 12 (7-17) mg/dL Creatinine 0.63 (0.52-1.04) mg/dL Estimated GFR > 60 (>60) mL/min BUN/Creatinine Ratio 19.0 (6-22) Glucose 125 H (70-99) mg/dL Calcium 9.5 (8.4-10.2) mg/dL Magnesium 2.0 (1.6-2.3) mg/dL Total Bilirubin 0.5 (0.2-1.3) mg/dL AST 36 (14-36) IU/L ALT 18 (<35) IU/L Alkaline Phosphatase 54 (38-126) U/L Troponin I < 0.012 (0.01-0.034) ng/mL NT-Pro-B Natriuret Pep < 20 (<125) pg/mL Total Protein 7.5 (6.3-8.2) g/dL Albumin 4.8 (3.5-5.0) g/dL Globulin 2.7 (1.7-4.1) g/dL Albumin/Globulin Ratio 1.8 (1.0-2.8) Lipase 102 (23-300) U/L Urine Color Yellow Urine Appearance Clear Urine pH 6.5 (4.5-8.0) Ur Specific [place] <=1.005 (1.000-1.035) Urine Protein Negative (Negative) Urine Glucose (UA) Negative (Negative) g/dL Urine Ketones Negative (NEGATIVE) Urine Occult Blood Negative (Negative) Urine Nitrate Negative (Negative) Urine Bilirubin Negative (NEGATIVE) Urine Urobilinogen 0.2 (0.2) E.U./dL Ur Leukocyte Esterase 2+ H (NEGATIVE) Urine RBC None seen (0-5/HPF) Urine WBC 1-5/hpf (0-5/HPF) Ur Squamous Epith Cells None seen (0-5/HPF) Urine Bacteria Few (2-10) H (None) Ur Culture Indicated? Specimen cultured Vol Urine Centrifuged 10ml (spun) Point of care testing: Urine Dip Bedside Urine Glucose Negative Bedside Urine Bilirubin - Negative Bedside Urine Ketone - Negative Urine Specific [place] 1.005 Bedside Urine Occult Blood - Negative Bedside Urine pH 7.5 Bedside Urine Protein - Negative Bedside Urine Urobilinogen - Negative Bedside Urine Nitrite - Negative Bedside Urine Leukocytes ++ 125 Esterase MDM Narrative Medical decision making narrative: Patient had a CAT scan of the chest unremarkable except for splenomegaly 12 lead EKG reveals sinus rhythm 98 beats per minute normal axis no blocks no acute changes CBC was within normals chemistry within normal limits lipase normal troponin negative D-dimer negative urinalysis is negative at this point of no real answer for the patient's palpitations I recommend that she follow up with her oncologist for further evaluation and treatment. Differential diagnosis is palpitations anxiety chest pain Discharge Plan Departure Patient Disposition: Home Clinical Impression: Palpitations Instructions: DI for Palpitations Prescriptions: No Action losartan 50 mg tablet 50 mg PO DAILY aspirin [Adult Aspirin Regimen] 81 mg tablet,delayed release (DR/EC) 81 mg PO DAILY nitrofurantoin monohyd/m-cryst [Macrobid] 100 mg capsule 100 mg PO Q12H 5 Days Qty: 10 0RF Rx Instructions: must administer with a meal/food Jakafi 10 mg tablet 10 mg PO BID Referrals: Javan Solomon MD [Primary Care Provider, Internal Medicine] - As soon as possible Stand Alone Forms: Patient Portal/API
--- NOTE | 2025-10-12 15:31 | EKG_ITS ---
[facility] [address] [address] Test Date: 2025-10-12 Pat Name: Anitha Goode Department: [facility] Room: Gender: Female Hhas: : 1960 Requested By: Order Number: [id number] Reading MD: Chet Tena MD Measurements Intervals [place] Rate: 98 P: 50 MN: 146 QRS: 28 QRSD: 82 T: 39 QT: 342 QTc: 436 Interpretive Statements Normal sinus rhythm Electronically Signed On 10-12-2025 15:39:03 PST by Chet Tena MD
[2025-10-12 15:42] LABS: Add Manual Diff / Slide Review NO; Hematocrit 40.2 % (36-46); Hemoglobin 13.3 g/dL (12.0-16.0); Lymphocytes Absolute Auto 900 /uL (1100-4500); Mean Corpuscular HGB Conc 33.0 % (30-36); Mean Corpuscular Hemoglobin 24.1 PG (26-34); Mean Corpuscular Volume 72.9 fL (80-100); Platelet Count 349 X10^3/uL (150-400)
[2025-10-12] MEDS: SODIUM CHLORIDE 0.9% 1,000 ML 999 ML IV (15:44)
[2025-10-12 15:57] LABS: INR 1.0 (0.9-1.3); Prothrombin Time 11.5 SECONDS (9.4-12.5)
[2025-10-12 16:00] LABS: PTT Partial Thromboplastin Tim 31 SECONDS (25.1-36.5)
[2025-10-12 16:01] LABS: Alanine Aminotransferase 18 IU/L (<35); Albumin 4.8 g/dL (3.5-5.0); Albumin Globulin Ratio 1.8 (1.0-2.8); Alkaline Phosphatase 54 U/L (38-126); Blood Urea Nitrogen 12 mg/dL (7-17); Calcium 9.5 mg/dL (8.4-10.2); Carbon Dioxide 27 mmol/L (22-32); Chloride 105 mmol/L (98-107); Estimated Glomerular Filt Rate > 60 mL/min (>60); Globulin 2.7 g/dL (1.7-4.1); Glucose 125 mg/dL (70-99); HEMOLYSIS < 15 (0-50); Lipase 102 U/L (23-300); Magnesium 2.0 mg/dL (1.6-2.3); Potassium 4.1 mmol/L (3.4-5.1); Sodium 141 mmol/L (137-145); Total Protein 7.5 g/dL (6.3-8.2)
[2025-10-12 16:13] LABS: NT-proBNP (BNP-Adult 18+) < 20 pg/mL (<125); Troponin I < 0.012 ng/mL (0.01-0.034)
--- NOTE | 2025-10-12 16:19 | DI.CT.S_ITS ---
PROCEDURE: CT CHEST WO CON INDICATIONS: l sided chest pain and luq pain TECHNIQUE: Noncontrast 5 mm thick sections acquired from the pulmonary apices to the posterior costophrenic angles. 1 mm lung window, 5 mm thick coronal and sagittal and 7 mm axial MIP reformats were then acquired. For radiation dose reduction, the following was used: automated exposure control, adjustment of mA and/or kV according to patient size. COMPARISON: [facility], CT, CT CHEST WO CON, 07/21/2025, 14:58. FINDINGS: Image quality: Diagnostic. Lower Neck: No enlarged lymph nodes. Thyroid: No thyroid nodules which require sonographic follow up, per consensus guidelines. Axillae: No enlarged lymph nodes. Chest Wall: Unremarkable. No displaced rib fracture. Bones: Unremarkable. Lungs and Pleura: No pneumothorax or pleural effusions. Subsegmental atelectasis versus chronic linear scarring in the bilateral lower lobes mild medial right middle lobe, and lingula. No acute consolidation. Heart: Heart size is normal. No pericardial effusion. Thoracic Vessels: The aorta and pulmonary arteries demonstrate normal size. Mediastinum and [place]: No enlarged lymph nodes. Esophagus: No wall thickening. No hiatal hernia. Upper Abdomen: Chronic splenomegaly. IMPRESSION: 1. No acute consolidation or acute infiltrate to suggest pneumonia. 2. Redemonstrated bilateral lower lobe predominant subsegmental atelectasis versus linear scarring. 3. Redemonstrated splenomegaly. Dictated by: Juan Daniel Park M.D. on 10/12/2025 at 15:39 Approved by: Juan Daniel Park M.D. on 10/12/2025 at 15:43
[2025-10-12 17:06] LABS: Appearance Urine UA CLEAR; Bilirubin Urine UA NEGATIVE (NEGATIVE); Color Urine UA YELLOW; Glucose Urine UA NEGATIVE (Negative); Ketones Urine UA NEGATIVE (NEGATIVE); Leukocyte Esterase Urine UA 2+ (NEGATIVE); Nitrite Urine UA NEGATIVE (Negative); Occult Blood Urine UA NEGATIVE (Negative); Protein Urine UA NEGATIVE (Negative); Specific Gravity Urine UA <=1.005 (1.000-1.035); Urobilinogen Urine UA 0.2 E.U./dL (0.2); pH Urine UA 6.5 (4.5-8.0)
[2025-10-12 17:09] LABS: Culture Indicated Urine Specimen Cultured
== END 2025-10-12 17:35 | disposition home or self-care (01) ==
PROVIDERS: Emergency Provider Emergency Medicine; PCP Student in an Organized Health Care Education/Training Program
DX: R00.2 Palpitations (principal); J90 Pleural effusion, not elsewhere classified; R10.12 Left upper quadrant pain; R11.0 Nausea
CPT/HCPCS: 36415; 71045; 71250; 80053; 81001; 81003; 83690; 83735; 83880; 84484; 85025; 85379; 85610; 85730; 87086; 93005; 96360; 99284; J7030